=== PATIENT | female | born 1985 | race Two or more races ===

== ENCOUNTER 2016-09-23 18:10 | Emergency (ER) | payer MEDICAID ==
[~2016-09-23] VITALS: Ht 154.9 cm; Wt 90.7 kg
[2016-09-23] MEDS ORDERED: Ipratropium 0.02% Inh Soln 2.5ml UD HHN ONE (18:30)
[2016-09-23] MEDS ORDERED: Albuterol ud Inhalation HHN ONE (18:30)
[2016-09-23] MEDS ORDERED: PredniSONE 20mg tab ORAL ONE (18:45)
[2016-09-23] MEDS ORDERED: PREDNISONE20 MG ORAL (19:15)
[2016-09-23] MEDS ORDERED: SEREVENT DISKU50 MCG IH (19:15)
--- NOTE | 2016-09-23 19:52 | Emergency Room Report ---
History of Present Illness General Chief Complaint: Dyspnea/Respdistress Source: Patient Present Illness HPI The patient is a 31-year-old female with a history of asthma presenting for shortness of breath. The patient developed a symptom today for no known reason. She also admits to a dry cough. She tried albuterol at home which has not helped. She denies any pain and denies other symptoms including N, V, F, chills, MARTINS, dizziness, CP Allergies: Coded Allergies: No Known Allergies (Unverified , 09/23/16) Patient History Past Medical History: see triage record Pertinent Family History: none Last Menstrual Period: 09/12/16 Now: No Reviewed Nursing Documentation: PMH: Agreed, PSxH: Agreed Nursing Documentation-PMH Hx Asthma: Yes Hx Diabetes: Yes Review of Systems All Other Systems: negative except mentioned in HPI Physical Exam Vital Signs Date Time Temp Pulse Resp B/P Pulse Ox O2 Delivery O2 Flow Rate FiO2 09/23/16 18:14 98.8 93 15 147/94 91 Room Air Sp02 EP Interpretation: reviewed, normal General Appearance: no apparent distress, alert, GCS 15, non-toxic Head: normocephalic, atraumatic Eyes: bilateral eye PERRL, bilateral eye normal inspection ENT: hearing grossly normal, normal pharynx, no angioedema, normal voice Neck: full range of motion, supple/symm/no masses Respiratory: normal inspection, chest non-tender, no respiratory distress, no accessory muscle use, decreased breath sounds, wheezing Cardiovascular #1: regular rate, rhythm, no edema Gastrointestinal: normal bowel sounds, non tender, soft, non-distended, no guarding, no rebound Musculoskeletal: back normal, gait/station normal, normal range of motion, non- tender Neurologic: alert, oriented x3, responsive, motor strength/tone normal, sensory intact, speech normal Psychiatric: judgement/insight normal, memory normal, mood/affect normal, no suicidal/homicidal ideation Skin: normal color, no rash, warm/dry, well hydrated Medical Decision Making PA Attestation Dr. Styles is my supervising physician. Patient management was discussed with my supervising physician Diagnostic Impression: Primary Impression: Asthma Qualified Codes: J45.901 - Unspecified asthma with (acute) exacerbation ER Course The patient is a 31-year-old female with a history of asthma presenting for shortness of breath Differential diagnoses considered but not limited to: Asthma exacerbation, bronchitis, pneumonia, anxiety PE: afebrile. NAD HEENT unremarkable. Oropharynx patent. No tonsillar edema. Lungs: decreased breath sounds and bilat wheezing. Non tender chest. No accessory muscle use or resp distress She is given a breathing treatment and oral steroids and feels better. Pulse ox has improved. She will be HI'ed home with prescription for oral steroids and salmeterol. She will continue to use albuterol. ER precautions given and she will FU with PMD Last Vital Signs Date Time Temp Pulse Resp B/P Pulse Ox O2 Delivery O2 Flow Rate FiO2 09/23/16 18:30 85 18 98 Room Air 09/23/16 18:14 98.8 147/94 Status: improved Disposition: HOME, SELF-CARE Condition: Improved Scripts Salmeterol Xinafoate (Serevent Diskus) 50 Mcg Blst.w.dev 50 MCG IH Q12HR, #1 UNIT Prov: LUCIANO VILLATORO 09/23/16 Prednisone* (PREDNISONE*) 20 Mg Tablet 40 MG ORAL DAILY, #10 TAB Prov: LUCIANO VILLATORO 09/23/16 Patient Instructions: Asthma, Adult, Asthma Attack Prevention Additional Instructions: I discussed my findings with the patient. All questions and concerns have been answered. Treatment and medication compliance have been addressed. I advised the patient that they need to follow up with PMD in 3-5 days. Return to ED if pain remains or worsens, cough worsens or remains, you notice blood in your sputum, you notice wheezing, you experience a fever, or if needed for any reason. Patient verbalized understanding of discharge instructions. LUCIANO VILLATORO Sep 23, 2016 19:52
[2016-09-23 21:46] VITALS: BP 129/87
== END 2016-09-23 19:25 | disposition home or self-care (01) ==
LOC: EMR 18:40
DX: J45.901 Unspecified asthma with (acute) exacerbation (principal); E11.9 Type 2 diabetes mellitus without complications
CPT/HCPCS: 94640; 99284

== ENCOUNTER 2017-01-15 16:16 | Emergency (ER) | payer MEDICAID ==
[~2017-01-15] VITALS: Ht 157.5 cm; Wt 113.4 kg
[~2017-01-15 16:16] MED LIST: PREDNISONE20 MG ORAL; SEREVENT DISKU50 MCG IH
[2017-01-15 17:04] VITALS: BP 141/88
[2017-01-15] MEDS ORDERED: CEPHALEXIN500 MG ORAL (17:42)
[2017-01-15] MEDS ORDERED: BACTRIM DS TAB1 EAC1 ORAL (17:42)
[2017-01-15 18:40] VITALS: BP 141/88
--- NOTE | 2017-01-15 22:51 | Emergency Room Report ---
History of Present Illness General Chief Complaint: Skin Rash/Abscess Source: Patient Present Illness HPI The patient is a 31-year-old female presenting for possible skin infection. She first noticed redness on her right breast one week prior which then developed into swelling. She states that this is painful and is an 8/10 dull ache. Worse with touch. She denies any discharge from the area. She denies any fever or chills. She denies nipple discharge. She is not breast-feeding. She denies any other symptoms Allergies: Coded Allergies: No Known Allergies (Unverified , 09/23/16) Patient History Past Medical History: see triage record Pertinent Family History: none Last Menstrual Period: dec 17, 2016 Now: No Reviewed Nursing Documentation: PMH: Agreed, PSxH: Agreed Nursing Documentation-PMH Past Medical History: No History, Except For Hx Asthma: Yes Hx Diabetes: Yes - dm2 Review of Systems All Other Systems: negative except mentioned in HPI Physical Exam Vital Signs Date Time Temp Pulse Resp B/P (MAP) Pulse Ox O2 Delivery O2 Flow Rate FiO2 01/15/17 17:04 99.3 89 16 141/88 96 Room Air Sp02 EP Interpretation: reviewed, normal General Appearance: no apparent distress, alert, GCS 15, non-toxic Head: normocephalic, atraumatic Eyes: bilateral eye normal inspection, bilateral eye PERRL ENT: hearing grossly normal, normal pharynx, no angioedema, normal voice Respiratory: chest non-tender, lungs clear, normal breath sounds, speaking full sentences Cardiovascular #1: regular rate, rhythm, no edema Musculoskeletal: back normal, gait/station normal, normal range of motion, non- tender Neurologic: alert, oriented x3, responsive, motor strength/tone normal, sensory intact, speech normal Psychiatric: judgement/insight normal, memory normal, mood/affect normal, no suicidal/homicidal ideation Skin: rash - R breast medial abscess: 4cm in diamater. tender. Non fluctuant. No DC. Hot to touch Lymphatic: no adenopathy Medical Decision Making PA Attestation Dr. Yepez is my supervising physician. Patient management was discussed with my supervising physician Diagnostic Impression: Primary Impression: Abscess ER Course The patient is a 31-year-old female presenting for possible skin infection. Differential diagnoses considered but not limited to: abscess, cellulitis, insect bite, mastitis, among others PE: NAD. Afebrile. R breast medial abscess: 4cm in diameter. tender. Non fluctuant. No DC. Hot to touch. No nipple DC. No erythema around nipple The patient discharged home with prescriptions for bactrim and keflex and needs to FU with PMD. ER precautions given Last Vital Signs Date Time Temp Pulse Resp B/P (MAP) Pulse Ox O2 Delivery O2 Flow Rate FiO2 01/15/17 18:40 99.3 99 20 141/88 96 Room Air Status: improved Disposition: HOME, SELF-CARE Condition: Improved Scripts Cephalexin* (KEFLEX*) 500 Mg Capsule 500 MG ORAL EVERY 12 HOURS, #14 CAP 0 Refills Prov: LUCIANO VILLATORO 01/15/17 Trimethoprim/Sulfamethoxazole 160/800* (BACTRIM DS TABLET*) 1 Each Tablet 1 TAB ORAL TWICE A DAY, #14 TAB Prov: LUCIANO VILLATORO 01/15/17 Referrals: [facility],REFERRING (PCP) Patient Instructions: Abscess Additional Instructions: I discussed my findings with the patient. All questions and concerns have been answered. Treatment and medication compliance have been addressed. I advised the patient that they need to follow up with PMD in 3-5 days. Return to ED if symptoms worsen, new symptoms arise, or if needed for any reason. Patient verbalized understanding of discharge instructions. LUCIANO VILLATORO Jan 15, 2017 22:51
== END 2017-01-15 17:49 | disposition home or self-care (01) ==
LOC: EMR 17:35
DX: N61.1 Abscess of the breast and nipple (principal); E11.9 Type 2 diabetes mellitus without complications; J45.909 Unspecified asthma, uncomplicated
CPT/HCPCS: 99283

== ENCOUNTER 2018-01-10 19:32 | Emergency (ER) | payer MEDICAID ==
[~2018-01-10] VITALS: Ht 154.9 cm; Wt 90.7 kg
[~2018-01-10 19:32] MED LIST changes: +BACTRIM DS TAB1 EAC1 ORAL; +CEPHALEXIN500 MG ORAL
[2018-01-10] MEDS ORDERED: METFORMIN HCL500 M1 ORAL (20:05)
[2018-01-10] MEDS ORDERED: JANUVIA25 MG ORAL (20:05)
[2018-01-10 20:10] VITALS: BP 149/87
[2018-01-10 20:39] LABS: APPEARANCE,URINE CLEAR; BILIRUBIN, URINE NEGATIVE (NEGATIVE); COLOR,URINE PALE YELLOW; GLUCOSE, URINE (UA) 4+ (NEGATIVE); KETONES,URINE 3+ (NEGATIVE); LEUKOCYTE ESTERASE ,URINE NEGATIVE (NEGATIVE); NITRITE,URINE NEGATIVE (NEGATIVE); PH,URINE 6.5 (4.5-8.0); PROTEIN,URINE NEGATIVE (NEGATIVE); UROBILINOGEN,URINE NORMAL MG/DL (0.0-1.0)
[2018-01-10] MEDS ORDERED: Dicyclomine HCl 10mg/5ml oral soln ORAL ONE (20:45)
[2018-01-10] MEDS ORDERED: Lidocaine 2% Visc 15ml soln ORAL ONE (20:45)
[2018-01-10] MEDS ORDERED: PRILOSEC OTC20 MG ORAL (22:04)
[2018-01-10] MEDS ORDERED: DICYCLOMINE HCL10 MG PO (22:04)
[2018-01-10] MEDS ORDERED: Sucralfate 1gm tab ORAL ONE (22:15)
[2018-01-10] MEDS ORDERED: Ketorolac 30mg Inj IM ONE (22:15)
[2018-01-10 22:43] VITALS: BP 144/84
--- NOTE | 2018-01-10 23:31 | Emergency Room Report ---
History of Present Illness General Chief Complaint: Back Pain-No Injury Source: Patient Present Illness HPI Patient is a 32-year-old female presented after increased bilateral flank pain. Patient reports having onset of symptoms approximately 2 weeks ago. Patient and family pain to the left side. This is worse worse with supine position. She denies any fever. She denies any vomiting. She denied any fever or weight loss. She denies episodes of diarrhea. Allergies: Coded Allergies: No Known Allergies (Unverified , 09/23/16) Patient History Past Medical History: see triage record Last Menstrual Period: 12/12/17 Now: No Reviewed Nursing Documentation: PMH: Agreed; PSxH: Agreed Nursing Documentation-PMH Past Medical History: No History, Except For Hx Asthma: Yes Hx Diabetes: Yes - dm2 Review of Systems All Other Systems: negative except mentioned in HPI Physical Exam Vital Signs Date Time Temp Pulse Resp B/P (MAP) Pulse Ox O2 Delivery O2 Flow Rate FiO2 01/10/18 20:00 99.7 98 16 149/87 95 Room Air 99.7 Sp02 EP Interpretation: reviewed, normal General Appearance: normal inspection, well appearing, no apparent distress, alert, GCS 15 Head: atraumatic ENT: normal ENT inspection, hearing grossly normal, normal voice Neck: normal inspection, full range of motion, supple, no bony tend Respiratory: normal inspection, lungs clear, normal breath sounds, no respiratory distress, no retraction, no wheezing Cardiovascular #1: regular rate, rhythm, no edema Gastrointestinal: normal inspection, normal bowel sounds, non tender, soft, no guarding, no hernia Genitourinary: no CVA tenderness Musculoskeletal: normal inspection, back normal, normal range of motion Neurologic: normal inspection, alert, oriented x3, responsive, supervisor spinning III-XII nml as tested, speech normal Psychiatric: normal inspection, judgement/insight normal, mood/affect normal Skin: normal inspection, normal color, no rash Medical Decision Making Diagnostic Impression: Primary Impression: Abdominal pain ER Course Patient presented for abdominal pain. Differential diagnoses included ischemic bowel, appendicitis, perforated viscus, abdominal aortic aneurysm, inferior myocardial infarction, viral gastroenteritis. Patient has a benign exam and does not appear to require any further imaging or laboratory testing at this time. The urinalysis showed no evidence of acute infection. The patient noted to have a benign exam and does not appear to have any evidence of any peritoneal signs. The patient was given GI cocktail with improvement in her symptoms. Patient was advised follow-up with her primary care physician for the reevaluation and treatment. Labs Test 01/10/18 20:11 Urine Color Pale yellow Urine Appearance Clear Urine pH 6.5 (4.5-8.0) Urine Specific [place] 1.015 (1.005-1.035) Urine Protein Negative (NEGATIVE) Urine Glucose (UA) 4+ (NEGATIVE) Urine Ketones 3+ (NEGATIVE) Urine Blood Negative (NEGATIVE) Urine Nitrite Negative (NEGATIVE) Urine Bilirubin Negative (NEGATIVE) Urine Urobilinogen Normal MG/DL (0.0-1.0) Urine Leukocyte Esterase Negative (NEGATIVE) Urine HCG, Qualitative Negative (NEGATIVE) Last Vital Signs Date Time Temp Pulse Resp B/P (MAP) Pulse Ox O2 Delivery O2 Flow Rate FiO2 01/10/18 22:38 99.7 01/10/18 20:00 98 16 149/87 95 Room Air Status: improved Disposition: HOME, SELF-CARE Condition: Stable Scripts Dicyclomine Hcl* (DICYCLOMINE HCL*) 10 Mg Capsule 10 MG PO QID, #20 CAP Prov: Hudson Styles MD 01/10/18 Omeprazole Magnesium (PRILOSEC OTC) 20 Mg Tablet. 20 MG ORAL DAILY, #30 TAB Prov: Hudson Styles MD 01/10/18 Referrals: NON PHYSICIAN (PCP) Patient Instructions: Abdominal Pain, Adult Hudson Styles MD Jan 10, 2018 23:31
== END 2018-01-10 22:43 | disposition home or self-care (01) ==
LOC: EMR 22:18
DX: R10.9 Unspecified abdominal pain (principal); E11.9 Type 2 diabetes mellitus without complications; J45.909 Unspecified asthma, uncomplicated
CPT/HCPCS: 81003; 81025; 96372; 99283; J1885

== ENCOUNTER 2018-04-19 07:46 | Inpatient (IN) | payer MEDICAID ==
[~2018-04-19] VITALS: Ht 157.5 cm; Wt 90.7 kg
[~2018-04-19 07:46] MED LIST changes: +DICYCLOMINE HCL10 MG PO; +JANUVIA25 MG ORAL; +METFORMIN HCL500 M1 ORAL; +PRILOSEC OTC20 MG ORAL
[2018-04-19 08:03] VITALS: BP 128/74
--- NOTE | 2018-04-19 08:03 | NUR ---
ED Nurse Note: PT WALKED IN TO ER TODAY FROM HOME. AOX4. PT C/O HEADACHE, DIZZINESS, INTERMITTENT PRODUCTIVE COUGH, NAUSEA AND MULTIPLE EPISODES OF VOMITING X 2 DAYS. PT HAS STEADY GAIT. LUNG SOUNDS CLEAR IN ALL LOBES. ACTIVE BOWEL SOUNDS IN ALL QUADRANTS. ABDOMEN NONDISTENDED AND NONTENDER TO PALPATION. LAST BM X YESTERDAY WHICH PT STATES WAS FORMED. PT DENIES DIARRHEA.
--- NOTE | 2018-04-19 08:05 | NUR ---
ED Nurse Note: PT'S ORAL TEMP AT BEDSIDE: 103.4F. DR SESAY AWARE.
[2018-04-19] MEDS ORDERED: Acetaminophen 500mg (ES) tab ORAL ONE (08:15)
--- NOTE | 2018-04-19 08:15 | Emergency Room Report ---
History of Present Illness General Chief Complaint: Flu Like Symptoms Source: Patient, Medical Record Present Illness HPI The patient presents with 2 days of upper respiratory infection with myalgias and fevers. She is diabetic. Last of her blood sugar was 110. She is on oral medication and does not take insulin. She feels dizzy when she stands up. The cough is been so severe that she's been vomiting. She had a flu vaccination last year. She has a headache also. She denies any diarrhea or dysuria. She is late for her period but doesn't believe she is at this time. Her last menstrual period was March 17. There are no rashes. Allergies: Coded Allergies: No Known Allergies (Unverified , 09/23/16) Patient History Past Medical History: see triage record Social History: Denies: smoking, alcohol use, drug use Social History Narrative Last Menstrual Period: 03/17/2018 Now: No : 0 Para: 0 Reviewed Nursing Documentation: PMH: Agreed; PSxH: Agreed Nursing Documentation-PMH Hx Asthma: Yes Hx Diabetes: Yes - dm2 Review of Systems All Other Systems: negative except mentioned in HPI Physical Exam Vital Signs Date Time Temp Pulse Resp B/P (MAP) Pulse Ox O2 Delivery O2 Flow Rate FiO2 04/19/18 07:53 102.7 137 18 125/67 96 Room Air General Appearance: well appearing, no apparent distress, alert, GCS 15 Head: normocephalic, atraumatic Eyes: bilateral eye normal inspection, bilateral eye PERRL ENT: normal pharynx Neck: supple, no bony tend Respiratory: chest non-tender, lungs clear, normal breath sounds Cardiovascular #1: regular rate, rhythm Cardiovascular #2: 2+ radial (L) Gastrointestinal: normal bowel sounds, non tender, soft Genitourinary: no CVA tenderness Musculoskeletal: back normal, gait/station normal, normal range of motion Neurologic: alert, oriented x3, grossly normal Psychiatric: mood/affect normal Skin: no rash Medical Decision Making Diagnostic Impression: Primary Impression: SIRS (systemic inflammatory response syndrome) Additional Impressions: Upper respiratory infection Qualified Codes: J06.9 - Acute upper respiratory infection, unspecified Hyperglycemia ER Course Patient presents with upper respiratory symptomatology. She is febrile and tachycardic. She's also diabetic. Evaluation will be with labs including urinalysis and an Accu-Chek. She'll be treated with IV hydration and Tylenol. A flu swab is sent. WBC elevated. CXR clear. Glucose elevated, not acidotic. Influenza neg. UA clear. Preg neg. Lactic acid 1.9. Improved symptoms with though still fever and tachycardia but improved. Discussed with Dr. Wendi Wallis at [place]. After initially trying to have me send the patient home, and then stating we might be missing diagnosis, he states will accept patient. After 2 L bolus the patient is still minimally tachycardic. The pain is improved. Her insurance could not find an appropriate bed for her. The patient is placed in observation on the medical floor under the care of Dr. Steel. Laboratory Tests Test 04/19/18 08:12 04/19/18 08:41 White Blood Count 28.2 K/UL (4.8-10.8) *H Red Blood Count 4.85 M/UL (4.20-5.40) Hemoglobin 14.4 G/DL (12.0-16.0) Hematocrit 43.2 % (37.0-47.0) Mean Corpuscular Volume 89 FL (80-99) Mean Corpuscular Hemoglobin 29.7 PG (27.0-31.0) Mean Corpuscular Hemoglobin Concent 33.4 G/DL (32.0-36.0) Red Cell Distribution Width 12.1 % (11.6-14.8) Platelet Count 348 K/UL (150-450) Mean Platelet Volume 6.4 FL (6.5-10.1) L Neutrophils (%) (Auto) % (45.0-75.0) Lymphocytes (%) (Auto) % (20.0-45.0) Monocytes (%) (Auto) % (1.0-10.0) Eosinophils (%) (Auto) % (0.0-3.0) Basophils (%) (Auto) % (0.0-2.0) Differential Total Cells Counted 100 Neutrophils % (Manual) 71 % (45-75) Lymphocytes % (Manual) 2 % (20-45) L Monocytes % (Manual) 5 % (1-10) Eosinophils % (Manual) 0 % (0-3) Basophils % (Manual) 1 % (0-2) Band Neutrophils 21 % (0-8) H Platelet Estimate Adequate Platelet Morphology Normal Red Blood Cell Morphology Normal Urine Color Pale yellow Urine Appearance Clear Urine pH 7 (4.5-8.0) Urine Specific [place] 1.005 (1.005-1.035) Urine Protein 1+ (NEGATIVE) H Urine Glucose (UA) 4+ (NEGATIVE) H Urine Ketones 4+ (NEGATIVE) H Urine Blood Negative (NEGATIVE) Urine Nitrite Negative (NEGATIVE) Urine Bilirubin Negative (NEGATIVE) Urine Urobilinogen Normal MG/DL (0.0-1.0) Urine Leukocyte Esterase Negative (NEGATIVE) Urine RBC 0 /HPF (0 - 2) Urine WBC 0 /HPF (0 - 2) Urine Squamous Epithelial Cells Occasional /LPF Urine Bacteria Moderate /HPF (NONE) H Sodium Level 135 MMOL/L (136-145) L Potassium Level 3.5 MMOL/L (3.5-5.1) Chloride Level 97 MMOL/L (98-107) L Carbon Dioxide Level 25 MMOL/L (21-32) Anion Gap 13 mmol/L (5-15) Blood Urea Nitrogen 9 mg/dL (7-18) Creatinine 0.8 MG/DL (0.55-1.30) Estimate Glomerular Filtration Rate > 60 mL/min (>60) Glucose Level 225 MG/DL (74-106) H Calcium Level 9.7 MG/DL (8.5-10.1) Total Bilirubin 0.7 MG/DL (0.2-1.0) Aspartate Amino Transferase (AST) 16 U/L (15-37) Alanine Aminotransferase (ALT) 31 U/L (12-78) Alkaline Phosphatase 86 U/L (46-116) Total Protein 9.4 G/DL (6.4-8.2) H Albumin 4.0 G/DL (3.4-5.0) Globulin 5.4 g/dL Albumin/Globulin Ratio 0.7 (1.0-2.7) L Lactic Acid Level 1.90 mmol/L (0.4-2.0) Microbiology Date/Time Source Procedure Growth Status 04/19/18 08:12 Nasal Nares Influenza Types A,B Antigen (AURELIO) - Final Complete Rhythm Strip Diag. Results EP Interpretation: yes Rhythm: no PVC's, no ectopy, other - Sinus tachycardia Chest X-Ray Diagnostic Results Chest X-Ray Diagnostic Results : Chest X-Ray Ordered: Yes # of Views/Limited/Complete: 1 View Indication: Other EP Interpretation: Yes Interpretation: no consolidation, no effusion, no pneumothorax Impression: No acute disease Electronically Signed by: Electronically signed by Salomon Hart MD Last Vital Signs Date Time Temp Pulse Resp B/P (MAP) Pulse Ox O2 Delivery O2 Flow Rate FiO2 04/19/18 16:00 99.7 111 18 117/65 (82) 96 04/19/18 13:21 Room Air Status: improved Disposition: PLACE IN OBSERVATION Condition: Serious Salomon Hart MD Apr 19, 2018 08:15
[2018-04-19 08:34] LABS: HEMATOCRIT 43.2 % (37.0-47.0); HEMOGLOBIN 14.4 G/DL (12.0-16.0); MEAN CORPUSCULAR VOLUME 89 FL (80-99); PLATELET COUNT 348 K/UL (150-450); RED BLOOD COUNT 4.85 M/UL (4.20-5.40); RED CELL DISTRIBUTION WIDTH 12.1 % (11.6-14.8)
[2018-04-19 08:38] LABS: APPEARANCE,URINE CLEAR; BILIRUBIN, URINE NEGATIVE (NEGATIVE); COLOR,URINE PALE YELLOW; GLUCOSE, URINE (UA) 4+ (NEGATIVE); KETONES,URINE 4+ (NEGATIVE); LEUKOCYTE ESTERASE ,URINE NEGATIVE (NEGATIVE); NITRITE,URINE NEGATIVE (NEGATIVE); PH,URINE 7 (4.5-8.0); PROTEIN,URINE 1+ (NEGATIVE); UROBILINOGEN,URINE NORMAL MG/DL (0.0-1.0)
[2018-04-19 08:40] LABS: WHITE BLOOD COUNT 28.2 K/UL (4.8-10.8)
--- NOTE | 2018-04-19 08:45 | NUR ---
ED Nurse Note: LACTIC ACID DRAWN AND SENT TO LAB.
[2018-04-19 08:48] LABS: ANION GAP 13 mmol/L (5-15); BLOOD UREA NITROGEN 9 mg/dL (7-18); CALCIUM 9.7 MG/DL (8.5-10.1); CARBON DIOXIDE 25 MMOL/L (21-32); CHLORIDE 97 MMOL/L (98-107); CREATININE 0.8 MG/DL (0.55-1.30); POTASSIUM 3.5 MMOL/L (3.5-5.1); SODIUM 135 MMOL/L (136-145)
--- NOTE | 2018-04-19 08:52 | NUR ---
ED Nurse Note: ORAL TEMP RECHECKED: 102.3F. DR SESAY AWARE.
[2018-04-19 08:53] LABS: ALANINE AMINOTRANSFERASE 31 U/L (12-78); ALBUMIN/GLOBULIN RATIO 0.7 (1.0-2.7); ALKALINE PHOSPHATASE 86 U/L (46-116); ASPARTATE AMINO TRANSFERASE 16 U/L (15-37); BILIRUBIN,TOTAL 0.7 MG/DL (0.2-1.0)
--- NOTE | 2018-04-19 09:00 | NUR ---
ED Nurse Note: RADIOLOGY CALLED FOR XRAY.
--- NOTE | 2018-04-19 09:02 | NUR ---
ED Nurse Note: XRAY AT BEDSIDE
[2018-04-19 09:29] VITALS: BP 120/81
--- NOTE | 2018-04-19 09:52 | Diagnostic Imaging Report ---
EXAM: XR Chest, 1 View CLINICAL HISTORY: COUGH TECHNIQUE: Frontal view of the chest. COMPARISON: No relevant prior studies available. FINDINGS: Lungs: Hypoventilatory lungs. Bibasilar lung atelectasis. Pleural space: Unremarkable. No pneumothorax. Heart: Unremarkable. No cardiomegaly. Mediastinum: Unremarkable. Bones/joints: Unremarkable. IMPRESSION: Hypoventilatory lungs. Bibasilar lung atelectasis.
[2018-04-19 10:18] VITALS: BP 111/61
--- NOTE | 2018-04-19 11:12 | NUR ---
ED Nurse Note: pt to be admitted here to obs status as no bed avail at [facility]
[2018-04-19] MEDS ORDERED: JANUVIA25 MG ORAL (11:44)
[2018-04-19] MEDS ORDERED: ATORVASTATIN CA40 MG ORAL (11:44)
[2018-04-19] MEDS ORDERED: METFORMIN HCL1000 M1 ORAL (11:44)
[2018-04-19] MEDS ORDERED: GLYXAMBI 25 MG1 EACH PO (11:44)
--- NOTE | 2018-04-19 12:45 | NUR ---
ED Nurse Note: [facility] CALLED FOR PT TRANSFER. REPORT GIVEN TO ANNE PAULSON. PT TAKEN UP TO [facility] VIA GURNEY WITH IV FLUIDS AND ALL BELONGINGS ACCOMPANIED BY EMT.
[2018-04-19] MEDS ORDERED: Sodium Chloride 550 ML IV SCH (13:43)
--- NOTE | 2018-04-19 13:50 | NUR ---
NURSE NOTES: DR MORAN MADE AWARE OF ADMISSION, CRITIVAL VALUE WBC. DR MORAN WITH ORDERS ADMIT: OBSERVATION, FULL CODE, CONTINUE HOME MEDS, REGULAR DIET, AND BLOOD CULTURES X2. IN NO APPARENT DISTRESS AT THIS TIME. PT WAS ORIENTED TO ROOM. EDUCATED STATE [address] POLICE OFFICER LIGHT. PT HAS 2 CREDIT CARDS. PT STATES HER WILL COME BY TO TAKE THE CREDIT CARDS HOME. PT EDUCATED ON PLAN OF CARE. PT VERBALIZED UNDERSTANDING.
[2018-04-19 13:59] VITALS: BP 140/82
--- NOTE | 2018-04-19 14:03 | NUR ---
NURSE NOTES: Receive patient into room 418 bed 1 patient is alert and oriented,respirations are unlabored.Afebrile at this time.IV fluids from ER,new orders receive from DR Steel,will carry out as order.Call light within reach.
[2018-04-19] MEDS: cefTRIAXone 1 GM in D5W 55 ML IVPB SCH (15:19)
[2018-04-19 16:00] VITALS: BP 117/65
[2018-04-19] MEDS: NovoLOG Insulin Flexpen SUBQ SCH ×2 (17:04→21:48)
[2018-04-19] MEDS: metFORMIN 500mg tab ORAL SCH (17:10)
[2018-04-19] MEDS ORDERED: HYDROcodone/Acetamin 10/325 tab ORAL PRN (19:30)
--- NOTE | 2018-04-19 19:34 | NUR ---
NURSE NOTES: Patient resting,but still having headache,DR Steel notified and order receieve.
--- NOTE | 2018-04-19 19:36 | NUR ---
HAND-OFF: Report given to Sapphire RODRÍGUEZ.
--- NOTE | 2018-04-19 19:40 | NUR ---
NURSE NOTES: Received patient in bed. On RA, no SOB, no acute distress. Danish speaking, bedbound. IV on RAC intact patent. Bed in lowest position, locked, alarms on. Call light in reach. Addendum: 04/19/18 at 2347 by Rafael Cruz RN Please discard. Charted wrong patient.
[2018-04-19 20:00] VITALS: BP 108/54
--- NOTE | 2018-04-19 20:30 | History and Physical Report ---
DATE OF ADMISSION: 04/19/2018 CHIEF COMPLAINT: Fevers and vomiting. HISTORY OF PRESENT ILLNESS: The patient is a 32-year-old female. She has a history of diabetes. She presented with complaints of 3 days of progressive fevers, chills, sweats, nausea, and vomiting. According to the patient, she was well until when she developed subjective fevers, chills, and headache. She has had intermittent episodes of nausea and vomiting. She has had a mild nonproductive cough. She denies any dysuria. No diarrhea. She denies any abdominal pain. On evaluation in the emergency room, the patient's temperature was 103.4. She had a pulse of 122 and respirations 22. Her blood pressure is 128/74. Initial workup showed a white count of 28,000 with 21% bands, sodium of 135, potassium of 3.5, and lactic acid level is normal at 1.9. UA was clear. Per ER report, influenza screen was negative. The patient is now admitted in light of persistent fevers and leukocytosis and vomiting. PAST MEDICAL HISTORY: Significant for history of diabetes. PAST SURGICAL HISTORY: None. CURRENT MEDICATIONS: Reconciled and reviewed. ALLERGIES: None. FAMILY HISTORY: Significant for diabetes. SOCIAL HISTORY: Negative for tobacco, ethanol, or drugs. REVIEW OF SYSTEMS: Significant only for fevers, nausea, vomiting, and headache. PHYSICAL EXAMINATION: VITAL SIGNS: Current temp 102.3, pulse 120, blood pressure 128/74, and respirations 22. GENERAL: The patient is well-developed, in no apparent distress. Awake, alert, and oriented x4. NECK: Supple. There is no nuchal rigidity. HEART: Regular rate and rhythm. LUNGS: Clear. ABDOMEN: Soft, nontender, and nondistended. EXTREMITIES: Without clubbing, cyanosis, or edema. LABORATORY DATA: White count 28,000. Sodium 135 and potassium 3.5. UA was clear. ASSESSMENT: This is a pleasant female, admitted with complaints of fevers and leukocytosis of unclear etiology. Suspect severe viral syndrome, cannot rule out early sepsis. PLAN: 1. Intravenous hydration. 2. Tylenol for fever. 3. ID consultation. 4. We will panculture. 5. Empiric antibiotics until cultures are back. 6. Plan of care was discussed with the patient at the bedside. Cade Obdulio Steel DR: JENISE JOB#: [id number] CC:
--- NOTE | 2018-04-19 20:30 | NUR ---
NURSE NOTES: Received patient in bed. On RA, no SOB. Patient verbalized feeling better and refused [place]. However, noted with fever at 101.7F. Dr Steel notified, received Ibuprofen 400mg TID PRN for fever. Bed in lowest position, locked, alarms on. Call light in reach.
[2018-04-19] MEDS ORDERED: Atorvastatin 20mg tab ORAL SCH (21:00)
--- NOTE | 2018-04-19 21:40 | NUR ---
NURSE NOTES: Temp dropped to 98.8F, asymptomatic, denies pain. Will keep monitoring closely.
[2018-04-19] MEDS: Heparin 5000 units/ml inj SUBQ SCH (21:44)
[2018-04-20] VITALS: BP 105/51
[2018-04-20 04:00] VITALS: BP 113/68
[2018-04-20] MEDS: NovoLOG Insulin Flexpen SUBQ SCH ×4 (05:35→16:54)
--- NOTE | 2018-04-20 07:26 | General Progress Note ---
Assessment/Plan Problem List: (1) Viral syndrome ICD Codes: B34.9 - Viral infection, unspecified SNOMED: 24632544, [id number] (2) Upper respiratory infection ICD Codes: J06.9 - Acute upper respiratory infection, unspecified SNOMED: [id number] Qualifiers: Qualified Codes: J06.9 - Acute upper respiratory infection, unspecified Status: stable, progressing Assessment/Plan follow up labs ivf abx until cultures back tylenol for fever pain rx Subjective ROS Limited/Unobtainable: No Constitutional: Reports: malaise, weakness HEENT: Reports: no symptoms Cardiovascular: Reports: no symptoms Respiratory: Reports: no symptoms Gastrointestinal/Abdominal: Reports: no symptoms Genitourinary: Reports: no symptoms Neurologic/Psychiatric: Reports: no symptoms Endocrine: Reports: no symptoms Hematologic/Lymphatic: Reports: no symptoms Allergies: Coded Allergies: No Known Allergies (Unverified , 09/23/16) All Systems: reviewed and negative except above Subjective no events. no fever or MARTINS. Objective Last 24 Hour Vital Signs Date Time Temp Pulse Resp B/P (MAP) Pulse Ox O2 Delivery O2 Flow Rate FiO2 04/20/18 04:00 97.2 85 18 113/68 (83) 98 04/20/18 00:00 99.7 102 18 105/51 (69) 95 04/19/18 22:12 98.8 04/19/18 21:00 Room Air 04/19/18 20:00 101.8 109 18 108/54 (72) 96 04/19/18 16:00 99.7 111 18 117/65 (82) 96 04/19/18 13:59 97.0 108 20 140/82 (101) 97 04/19/18 13:21 Room Air 04/19/18 12:45 101.3 100 16 116/63 98 Room Air 04/19/18 10:18 101.3 112 20 111/61 97 Room Air 04/19/18 09:29 101.8 114 24 120/81 96 Room Air 04/19/18 08:52 102.3 04/19/18 08:48 102.3 04/19/18 08:03 103.4 122 22 128/74 99 Room Air 04/19/18 08:03 122 22 Room Air 04/19/18 07:53 102.7 137 18 125/67 96 Room Air Intake and Output 04/19/18 04/20/18 19:00 07:00 Intake Total 2820 ml 1040 ml Balance 2820 ml 1040 ml Intake Oral 650 ml 360 ml IV Total 2170 ml 680 ml # Voids 1 4 Laboratory Tests 04/19/18 08:12: White Blood Count 28.2*H, Red Blood Count 4.85, Hemoglobin 14.4, Hematocrit 43.2 , Mean Corpuscular Volume 89, Mean Corpuscular Hemoglobin 29.7, Mean Corpuscular Hemoglobin Concent 33.4, Red Cell Distribution Width 12.1, Platelet Count 348, Mean Platelet Volume 6.4L, Neutrophils (%) (Auto) , Lymphocytes (%) ( Auto) , Monocytes (%) (Auto) , Eosinophils (%) (Auto) , Basophils (%) (Auto) , Differential Total Cells Counted 100, Neutrophils % (Manual) 71, Lymphocytes % ( Manual) 2L, Monocytes % (Manual) 5, Eosinophils % (Manual) 0, Basophils % ( Manual) 1, Band Neutrophils 21H, Platelet Estimate Adequate, Platelet Morphology Normal, Red Blood Cell Morphology Normal, Urine Color Pale yellow, Urine Appearance Clear, Urine pH 7, Urine Specific [place] 1.005, Urine Protein 1+H, Urine Glucose (UA) 4+H, Urine Ketones 4+H, Urine Blood Negative, Urine Nitrite Negative, Urine Bilirubin Negative, Urine Urobilinogen Normal, Urine Leukocyte Esterase Negative, Urine RBC 0, Urine WBC 0, Urine Squamous Epithelial Cells Occasional, Urine Bacteria ModerateH, Sodium Level 135L, Potassium Level 3.5, Chloride Level 97L, Carbon Dioxide Level 25, Anion Gap 13, Blood Urea Nitrogen 9, Creatinine 0.8, Estimat Glomerular Filtration Rate > 60, Glucose Level 225H, Calcium Level 9.7, Total Bilirubin 0.7, Aspartate Amino Transf (AST/SGOT) 16, Alanine Aminotransferase (ALT/SGPT) 31, Alkaline Phosphatase 86, Total Protein 9.4H, Albumin 4.0, Globulin 5.4, Albumin/Globulin Ratio 0.7L 04/19/18 08:41: Lactic Acid Level 1.90 Height (Feet): 5 Height (Inches): 2.00 Weight (Pounds): 200 General Appearance: WD/WN, alert Neck: supple Cardiovascular: regular rhythm Respiratory/Chest: lungs clear Abdomen: normal bowel sounds, non tender, soft, no organomegaly Edema: no edema noted Arm (L), no edema noted Arm (R), no edema noted Leg (L), no edema noted Leg (R), no edema noted Pedal (L), no edema noted Pedal (R), no edema noted Generalized Neurologic: traveling electrician II-XII grossly normal, alert, oriented x 3, responsive Cade Steel MD Apr 20, 2018 07:26
--- NOTE | 2018-04-20 07:35 | NUR ---
NURSE NOTES: Received patient in bed awake, alert and oriented x4, able to make needs known, No acute respiratory distress noted. No c/o pain or any discomfort noted, Bed is in lowest position and locked, Call light and needs within reach, Will continue to monitor.
--- NOTE | 2018-04-20 07:47 | NUR ---
HAND-OFF: Report given to Cecilia Schaeffer RN.
--- NOTE | 2018-04-20 07:50 | NUR ---
NURSE NOTES: came in and RN asked if patient needs to be admitted. Dr. Steel says " I need to check her blood test." Rn reminded that no blood test today. He will order labs.
[2018-04-20 08:00] VITALS: BP 110/56
[2018-04-20] MEDS: metFORMIN 500mg tab ORAL SCH ×2 (08:46→18:00)
[2018-04-20] MEDS: Heparin 5000 units/ml inj SUBQ SCH (08:47)
[2018-04-20 08:57] LABS: HEMATOCRIT 39.5 % (37.0-47.0); HEMOGLOBIN 13.3 G/DL (12.0-16.0); MEAN CORPUSCULAR VOLUME 89 FL (80-99); PLATELET COUNT 291 K/UL (150-450); RED BLOOD COUNT 4.42 M/UL (4.20-5.40); RED CELL DISTRIBUTION WIDTH 12.4 % (11.6-14.8); WHITE BLOOD COUNT 21.3 K/UL (4.8-10.8)
[2018-04-20] MEDS ORDERED: JARDIANCE 25 MG ORAL SCH (09:00)
[2018-04-20 09:51] LABS: ALANINE AMINOTRANSFERASE 22 U/L (12-78); ALBUMIN/GLOBULIN RATIO 0.6 (1.0-2.7); ALKALINE PHOSPHATASE 78 U/L (46-116); ANION GAP 13 mmol/L (5-15); ASPARTATE AMINO TRANSFERASE 14 U/L (15-37); BILIRUBIN,TOTAL 0.5 MG/DL (0.2-1.0); BLOOD UREA NITROGEN 7 mg/dL (7-18); CALCIUM 8.7 MG/DL (8.5-10.1); CARBON DIOXIDE 22 MMOL/L (21-32); CHLORIDE 103 MMOL/L (98-107); CREATININE 0.4 MG/DL (0.55-1.30); POTASSIUM 3.6 MMOL/L (3.5-5.1); SODIUM 138 MMOL/L (136-145)
[2018-04-20 12:00] VITALS: BP 115/60
--- NOTE | 2018-04-20 12:28 | NUR ---
NURSE NOTES: RN notified Dr. Steel regarding trending down WBC result with new order to admit in patient and CBC and CMP in AM, order noted and carried out.
--- NOTE | 2018-04-20 15:15 | NUR ---
CASE MANAGEMENT: REVIEW 32/F PRESENTED TO ED FROM HOME CC: FLU LIKE SYMPTOMS X2 DAYS . BODY PAIN 01/01 SI: VIRAL SYNDROME . UPPER RESPIRATORY INFECTION T 103.4 HR 137 RR 24 BP 108/54 SAT 96% ROOM AIR WBC 28.2 NA 135 GLUCOSE 225 IS: NS IVF BOLUS X1 ZOFRAN IV X1 TYLENOL PO X1 INTERQUAL CRITERIA MET: PATIENT ADMITTED TO MED/SURG UNIT 04/19/2018 DCP: PATIENT IS FROM HOME
[2018-04-20] MEDS: cefTRIAXone 1 GM in D5W 55 ML IVPB SCH (15:57)
[2018-04-20 16:00] VITALS: BP 120/61
--- NOTE | 2018-04-20 17:50 | NUR ---
NURSE NOTES: Patient wants to leave AMA, Patient understood what AMA is and her condition with Elevated WBC, RN explained about her condition about elevated WBC, and waiting for Blood culture result, and benefit and risk, Patient verbalized understanding, patient still wants to go home, RN removed IV line without s/s of infection, RN belonging checked completely with patient, all belonging accounted for, Home medication given to patient, Skin assessment done with skin intact, Patient knows when to seek medical attention, Dr. Steel and information systems supervisor notified, charge made aware.
--- NOTE | 2018-04-21 07:57 | Discharge Summary ---
Discharge Summary Discharge Summary _ DATE OF ADMISSION: 04/19/2018 DATE OF DISCHARGE: 04/20/2018 Patient left AGAINST MEDICAL ADVICE REASON FOR ADMISSION: 32 years old female with past medical history of diabetes , presented with complaint of three days of fever, chills, sweats. Patient reported intermittent episodes of nausea and vomiting. Patient had mild nonproductive cough. She denied dysuria, diarrhea, abdominal pain. Upon evaluation in emergency room patient was febrile with temperature 102.7 , tachycardic with heart rate 122 and tachypneic with respiratory rate 22. Blood pressure was 128/74 . Pulse oximetry was stable on room air. Initial laboratory workup revealed leukocytosis with WBC of 28.2 with 21% of bands, sodium 135, potassium 3.5, lactic acid within normal limits -1.9. Urinalysis revealed no pyuria, +4 glucose ,+4 ketones and moderate bacteria. Influenza screen test was negative. Chest x-ray revealed hypoventilatory lungs. Bibasilar lung atelectasis. Patient was admitted for further management HOSPITAL COURSE: Patient admitted to medical floor and started on the IV hydration. Antipyretics provided as needed. Fever resolved. ID consult was requested. Patient pancultured and started on empiric antibiotics. Home medications resumed, including metformin and Januvia. Sliding scale of insulin was on board as needed. Statin continued. DVT prophylaxis provided. Leukocytosis was trending down , next day - 21.3. Fevers resolved. Heart rate and respiratory rate stabilized. Pulse oximetry was stable on room air. Antiemetic provided as needed. Patient was able to tolerate diet. No vomiting episodes. Patient decided to sign AGAINST MEDICAL ADVICE , since she felt better. The risks and consequences of signing AGAINST MEDICAL ADVICE were discussed with patient in detail. Patient verbalized understanding, nevertheless signed AMA form and left. FINAL DIAGNOSES: Viral syndrome Upper respiratory infection Diabetes mellitus I have been assigned to dictate discharge summary for this account. I was not involved in the patient's management. Gloria Lopez NP Apr 21, 2018 07:57
--- NOTE | 2018-04-29 15:36 | NUR ---
*-* INSURANCE *-* ALL CLINICALS AND REVIEWS & INTERQUAL FAXED TO: [employer]....(PT AMA) P- [phone] F- [phone]
== END 2018-04-20 17:50 | disposition left against medical advice (07) | DRG 723 ==
LOC: EMR 08:05 → EDBEDREQ 08:46 → 4E 12:48 → EDBEDREQ 12:55
DX: B34.9 Viral infection, unspecified (principal); E11.9 Type 2 diabetes mellitus without complications; J06.9 Acute upper respiratory infection, unspecified
CPT/HCPCS: 36415; 71045; 80053; 81003; 82962; 83605; 85007; 85025; 86710; 87040; 87086; 87181; 96374; 96375; 99285; J1815; J2405